=== PATIENT | male | born 1975 | race Caucasian/White ===

== ENCOUNTER 2022-07-17 16:57 | Emergency (ER) | payer SELFPAY ==
[~2022-07-17] VITALS: Ht 162.6 cm; Wt 80.3 kg
[2022-07-17 17:07] VITALS: BP_SYST 146
[2022-07-17] MEDS ORDERED: KETOROLAC TROMETHAMINE 60 MG/2 ML VIAL IM ONE (18:00)
[2022-07-17] MEDS ORDERED: DICL75TA5 PO (21:03)
[2022-07-17] MEDS ORDERED: DICL20GE TP (21:03)
[2022-07-17 21:15] VITALS: BP_SYST 146
== END 2022-07-17 21:14 | disposition home or self-care (01) ==
LOC: SED 16:57
DX: S39.012A Strain of muscle, fascia and tendon of lower back, initial encounter (principal); M54.32 Sciatica, left side; Z79.899 Other long term (current) drug therapy; X50.0XXA Overexertion from strenuous movement or load, initial encounter; Y93.89 Activity, other specified; Y92.89 Other specified places as the place of occurrence of the external cause; Y99.8 Other external cause status
CPT/HCPCS: 99283; 96372; J1885